=== PATIENT | female | born 1985 | race Caucasian/White ===

== ENCOUNTER 2017-01-11 06:15 | Outpatient (CLI) | payer OTHER ==
[~2017-01-11] VITALS: Ht 167.6 cm; Wt 88.9 kg
[2017-01-11] MEDS ORDERED: AMIT75TA2 PO (13:24)
[2017-01-11] MEDS ORDERED: CITA20TA12 PO (13:24)
== END 2017-01-11 13:40 ==
LOC: PREOP 06:15
PROVIDERS: ATTEND Surgery
DX: Z01.818 Encounter for other preprocedural examination (principal); K92.1 Melena; K21.9 Gastro-esophageal reflux disease without esophagitis

== ENCOUNTER 2017-01-15 10:42 | Day surgery (SDC) | payer OTHER ==
[~2017-01-15] VITALS: Ht 167.6 cm; Wt 88.9 kg
[~2017-01-15 10:42] MED LIST: AMIT75TA2 PO; CITA20TA12 PO
[2017-01-15 10:54] VITALS: BP 135/88
[2017-01-15] MEDS ORDERED: NS IV 500 ML 500 ML IV ONE (11:00)
[2017-01-15] MEDS ORDERED: fentaNYL INJECTION 100 MCG/2 ML AMP ONE ×2 (11:20)
[2017-01-15] MEDS ORDERED: LIDOCAINE JELLY 2% (XYLOCAINE) 5 ML TUBE ONE (11:20)
[2017-01-15] MEDS ORDERED: MIDAZOLAM 2 MG/2 ML (VERSED) VIAL ONE ×7 (11:20→12:00)
[2017-01-15] MEDS ORDERED: HURRICAINE EXT TUBE (BENZOCAINE) ONE (11:21)
[2017-01-15] MEDS: fentaNYL INJECTION 100 MCG/2 ML AMP IVP PRN ×3 (11:32→12:13)
[2017-01-15] MEDS: MIDAZOLAM 2 MG/2 ML (VERSED) VIAL IVP PRN ×7 (11:33→12:15)
--- NOTE | 2017-01-15 11:35 | Conscious Sedation/ASA ---
Conscious Sedation Pre-Proced Time Reviewed: 11:15 ASA Class: 2 Airway Mallampati Classification: (red cliff appropriate class) I. II. III, IV Lungs Heart ASA score ASA 1: a normal healthy patient ASA 2: a patient with a mild systemic disease (mid diabetes, controlled hypertension, obesity ASA 3: a patient with a severe systemic disease that limits activity (angina , COPD, prior Myocardial infarction) ASA 4: a patient with an incapacitating disease that is a constant threat to life (CHF, renal failure) ASA 5: a moribund patient not expected to survive 24 hrs. (ruptured aneurysm) ASA 6: a declared brain patient whose organs are being harvested. For emergent operations, add the letter E after the classification Grade 3 Sedation Plan: Analgesia, Amnesia, Plan communicated to team members, Discussed options with patient/fam, Discussed risks with patient/fam Note The patient is an appropriate candidate to undergo the planned procedure, sedation, and anesthesia. The patient immediately re-assessed prior to indication. PEREZ CAMPBELL MD Jan 15, 2017 11:35 am
--- NOTE | 2017-01-15 11:36 | Progress Note-Pre Operative ---
Pre-Operative Progress Note H&P Reviewed The H&P was reviewed, patient examined and no changes noted. Date Seen by Provider: Jan 15, 2017 Time Seen by Provider: 11:15 Date H&P Reviewed: Jan 15, 2017 Time H&P Reviewed: 11:15 Pre-Operative Diagnosis: rectal bleed, GERD, family hx crohn's PEREZ CAMPBELL MD Jan 15, 2017 11:36 am
[2017-01-15] MEDS ORDERED: morphine INJ 10 MG/ML 1ML (SYR OR VIAL) IV PRN (11:45)
[2017-01-15] MEDS ORDERED: ONDANSETRON 4 MG/2 ML (SDV) Z0FRAN IV PRN (11:45)
[2017-01-15] MEDS ORDERED: ACETAMINOPHEN 325 MG TABLET/CAPLET (TYLENOL) PO PRN (11:45)
[2017-01-15] MEDS ORDERED: HYDROcodone/APAP 5 MG/325 MG (LORTAB) TAB PO PRN (11:45)
[2017-01-15] MEDS ORDERED: NS IV 500 ML 500 ML ONE (12:08)
[2017-01-15] MEDS ORDERED: NS IV 500 ML 500 ML IV PRN (12:30)
[2017-01-15] MEDS ORDERED: LIDOCAINE JELLY 2% (XYLOCAINE) 5 ML TUBE TOP ONE (12:45)
--- NOTE | 2017-01-15 12:46 | Progress Note-Post Operative ---
Post-Operative Progess Note Surgeon (s)/Dinker (s) Surgeon PEREZ CAMPBELL MD Dinker: none Pre-Operative Diagnosis rectal bleed, GERD, family hx crohn's Post-Operative Diagnosis reflux esophagitis(class B), no HH, mild-moderate gastritis. chronic stage 1 ext and stage 2 int hemorrhoids. Procedure & Operative Findings Date of Procedure 01/15/17 Procedure Performed/Findings EGD with bx. Colonoscopy. Anesthesia Type CS Estimated Blood Loss Estimated blood loss (mL): minimal Specimens/Packing Specimens Removed GE jxn, antrum. PEREZ CAMPBELL MD Jan 15, 2017 12:46 pm
[2017-01-15] MEDS ORDERED: PANT40TA2 PO (12:47)
--- NOTE | 2017-01-15 12:48 | Discharge Inst-Surgical ---
D/C Lap Instructions-KIDKelly New, Converted, or Re-Newed RX: RX on Chart Follow Up PRN Activity as tolerated High Fiber Diet 25g or more per day Avoid Alcohol, Caffeine, Spicy [place] and Acid foods. Drink 64 fluid oz or more of fluids per day. Symptoms to Report: Fever over 101 degree F, Nausea/Vomiting If any problems/questions: Contact your physician or go to Emergency Room PEREZ CAMPBELL MD Jan 15, 2017 12:48 pm
[2017-01-15 12:50] VITALS: BP 140/68
[2017-01-15 13:20] VITALS: BP 125/93
[2017-01-15 13:40] VITALS: BP 125/93
[2017-01-15] MEDS ORDERED: HURRICAINE EXT TUBE (BENZOCAINE) XX ONE (14:30)
--- NOTE | 2017-01-18 02:18 | OPERATIVE REPORT ---
PROCEDURE PHYSICIAN: PEREZ BRITT DATE OF PROCEDURE: 01/15/2017 ATTENDING PRIMARY NETWORK SECURITY ADMINISTRATOR: Kaitlynn Davidson APRN in [place]. PREOPERATIVE DIAGNOSIS: 1. Rectal bleeding. 2. Gastroesophageal reflux disease. 3. Family history of Crohn's disease. POSTOPERATIVE DIAGNOSES: 1. Reflux esophagitis, class B. 2. No hiatal hernia. 3. Mild to moderate gastritis. 4. Chronic stage I external, stage II internal hemorrhoids. 5. The remainder of the rectum and colon were normal. PROCEDURE: 1. EGD with biopsy. 2. Colonoscopy. SURGEON: Dr. Britt. ANESTHESIA: Conscious sedation. ESTIMATED BLOOD LOSS: Minimal. FINDINGS: EGD: 1. Reflux esophagitis, class B. 2. No hiatal hernia. 3. Mild to moderate gastritis. 4. Pylorus and duodenum appeared normal with no mucosal inflammatory changes to indicate any inflammatory bowel disease. COLONOSCOPY: 1. Chronic stage I external hemorrhoids. 2. Chronic stage II internal hemorrhoids, not actively edematous nor inflamed and no bleeding. Normal sphincter tone was felt and there were no palpable masses. The remainder of the rectum and colon were normal. There were no mucosal inflammatory changes as well as no polyps or any neoplasms identified. DISPOSITION: The patient tolerated procedure well. Kimberly Carlson is a 31-year-old female with an episode of rectal bleeding. She reports that several weeks ago she developed red blood per rectum, as well as dark or blood clots during bowel movement. She reports that this is her first significant episode. She may have reported some small episodes of bleeding on the toilet tissue in the past. She does not report any issues with severe abdominal pain, as well as no fever nor chills as well as no mucousy or other episodes of significant blood loss per rectum. She does report that she has had some issues with constipation in the past. She also has had some issues with epigastric burning sensation as well as crampy pain consistent more with a of gastroesophageal reflux disease. She does have a family history of colon cancer with her maternal grandmother as well as maternal great grandmother having the disease. She also reports that her mother was diagnosed with Crohn's disease at 20 years of age. PROCEDURE: The patient was brought to the endoscopy suite, laid in the left lateral decubitus position with the head slightly elevated. After adequate IV pain and sedative medications and conscious sedation anesthesia, the mouthpiece was applied. The endoscope was then placed into the mouth, visualizing the pharynx and hypopharyngeal region. Vocal cords, epiglottis and vallecula identified and appeared to be normal. The endoscope was then gently intubated into the esophageal opening and the esophagus insufflated. The endoscope was then advanced through the first, second, and 3rd portions of the esophagus. At the level of the GE junction, a reflux esophagitis, class B identified. There were no ulcers or strictures identified in this region. A biopsy was taken with forceps with visualization of good hemostasis. A biopsy was taken of the stomach antrum with forceps with visualization of good hemostasis. The endoscope was then advanced through the pylorus and first and second portions of the duodenum, which appeared normal. There were no mucosal inflammatory changes indicated in the duodenum. The endoscope was then slowly withdrawn while taking a second look and suctioning of residual air with no additional findings. The patient tolerated this portion of the procedure well. We will have her continue with medical management with the necessary lifestyle and diet accommodation including smaller, more frequent meals, avoidance of eating at night, as well as head elevation while lying supine. She also needs to avoid caffeinated beverages, spicy, greasy and acidic foods. We will also start her on a Protonix 40 mg daily. COLONOSCOPY: Under the same conscious sedation anesthesia, we then proceeded with the colonoscopy portion of the procedure. A digital rectal examination was performed, which revealed chronic stage I external and chronic stage II internal hemorrhoids which were not actively edematous nor inflamed and no bleeding. Normal sphincter tone was felt and there were no palpable masses. The endoscope was then intubated into the anus and the rectum gently insufflated. The endoscope was then advanced through the valves of [place] of the rectum where no polyps or any neoplasms identified. There were also no mucosal inflammatory changes to indicate any active proctitis. The endoscope was then advanced through the sigmoid, descending, transverse, and ascending colon to the cecum. All of these segments were normal. There were no mucosal inflammatory changes to indicate any active colitis as well as no polyps or any neoplasms identified. The endoscope was then slowly withdrawn while taking a second look and suctioning of residual air with no additional findings. The patient tolerated the procedure well. We feel that her bleeding, most likely had to do with constipation, as well as an episode of the internal hemorrhoidal bleeding. Our recommendation is that she proceed with medical management with high fiber diet with least 25 to 30 grams of fiber per day, as well as at least 64 fluid ounces of water daily to promote soft stools on a daily basis. If she has recurrent episodes of rectal bleeding versus worsening symptoms associated crampy abdominal pain or mucousy stools mixed with blood, we will proceed with further investigation and diagnostic work-up for possible inflammatory bowel disease. Job ID: [id number] Dictated Date: 01/15/2017 12:47:30 Senior Contracts Administrator Date: 01/18/2017 02:04:12 / balaji PORTILLO
== END 2017-01-15 13:40 | disposition home or self-care (01) ==
LOC: ENDO 10:42
PROVIDERS: ATTEND Surgery
DX: K62.5 Hemorrhage of anus and rectum (principal); K64.1 Second degree hemorrhoids; K21.0 Gastro-esophageal reflux disease with esophagitis; Z83.79 Family history of other diseases of the digestive system; F41.9 Anxiety disorder, unspecified; F32.9 Major depressive disorder, single episode, unspecified; Z79.899 Other long term (current) drug therapy
CPT/HCPCS: 84703